=== PATIENT | female | born 1955 ===

== ENCOUNTER 2020-07-08 19:19 | Outpatient (REF) | payer MEDICAID, SELFPAY ==
[2020-07-10 18:57] LABS: SARS-CoV-2 RNA Undetected (Undetected); SARS-CoV-2 Specimen Source Nasal
== END 2020-07-08 19:39 ==
LOC: NCHCN 19:19
PROVIDERS: Visit Provider Nurse Practitioner Family
DX: Z20.828 Contact with and (suspected) exposure to other viral communicable diseases (principal)
CPT/HCPCS: U0003